=== PATIENT | female | born 1975 | race African-American/Black ===

== ENCOUNTER 2018-11-28 20:45 | Emergency (ER) | payer OTHER ==
--- NOTE | 2018-11-28 21:13 | ER ---
Nurse's Notes [facility] Name: Elen Delgado Age: 43 yrs Sex: Female : 1975 Arrival Date: 11/28/2018 Time: 20:48 Bed 19 Private MD: Diagnosis: Otitis media, unspecified, left ear;Unspecified perforation of tympanic membrane, left ear Presentation: 11/28 20:57 Presenting complaint: Patient states: that she is having left ear pain that radiates to left yazidism and left jaw. Started November 20, 2018. Took Sudafed, Amoxicillin, Ibuprofen all with no relief. Has appt with PCP on Friday. Transition of care: patient was not received from another setting of care. Onset of symptoms was November 20, 2018. Risk Assessment: Do you want to hurt yourself or someone else? Patient reports no desire to harm self or others. Initial Sepsis Screen: Does the patient meet any 2 criteria? HR > 90 bpm. Yes Does the patient have a suspected source of infection? No. Patient's initial sepsis screen is negative. Care prior to arrival: Medication(s) given: Motrin, 400 mg, last at 1700. 20:57 Method Of Arrival: Ambulatory 20:57 Acuity: DOMINGA 4 Triage Assessment: 21:00 General: Appears uncomfortable, Behavior is calm, cooperative, appropriate for age. fc Pain: Complains of pain in left ear Pain currently is 9 out of 10 on a pain scale. Quality of pain is described as aching, throbbing, Pain began 1 week ago Is continuous. EENT: Reports pain in left ear. 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 - Social history:: Smoking status: Patient/guardian denies using tobacco, Patient uses alcohol, only on a social basis. Patient/guardian denies using street drugs. - Ebola Screening: : Patient negative for fever greater than or equal to 101.5 degrees Fahrenheit, and additional compatible Ebola Virus Disease symptoms Patient denies exposure to infectious person Patient denies travel to an Ebola-affected area in the 21 days before illness onset. Screenin:14 Abuse screen: Denies threats or abuse. Denies injuries from another. Nutritional ak1 screening: No deficits noted. Tuberculosis screening: No symptoms or risk factors identified. Fall Risk None identified. Assessment: 21:23 General: Appears in no apparent distress. Behavior is calm, cooperative. Pain: ak1 Complains of pain in left ear. Neuro: No deficits noted. Cardiovascular: No deficits noted. Respiratory: No deficits noted. GI: No signs and/or symptoms were reported involving the gastrointestinal system. : No signs and/or symptoms were reported regarding the genitourinary system. EENT: Reports pain in left ear. Derm: No signs and/or symptoms reported regarding the dermatologic system. Musculoskeletal: No signs and/or symptoms reported regarding the musculoskeletal system. Vital Signs: 21:00 BP 130 / 72; Pulse 97; Resp 20; Temp 99(O); Pulse Ox 98% on R/A; Weight 92.99 kg (R); fc Height 5 ft. 3 in. (160.02 cm) (R); Pain 9/10; 21:00 Body Mass Index 36.31 (92.99 kg, 160.02 cm) ED Course: 20:48 Patient arrived in ED. as 20:59 Triage completed. fc 21:00 Arm band placed on Patient placed in an exam room, on a stretcher. fc 21:05 Hema Olvera NP is PHCP. pm1 21:05 Amor Wagner MD is Attending Physician. pm1 21:13 Vanessa Meredith, SADIA is Primary Nurse. ak1 21:14 Patient has correct armband on for positive identification. Bed in low position. Call ak1 light in reach. Side rails up X 1. Pulse ox on. NIBP on. 21:23 No provider procedures requiring assistance completed. Patient did not have IV access ak1 during this emergency room visit. Administered Medications: 21:22 Drug: [place] 5 mg-325 mg 1 tabs Route: PO; ak1 21:24 Follow up: Response: Medication administered at discharge. ak1 Outcome: 21:13 Discharge ordered by MD. pm1 21:23 Discharged to home ambulatory, with family. ak1 21:23 Condition: good 21:23 Discharge instructions given to patient, Instructed on discharge instructions, follow up and referral plans. no drinking with medication, no driving heavy equipment, medication usage, safe sex practices, Demonstrated understanding of instructions, follow-up care, medications, Prescriptions given X 2. 21:24 Patient left the ED. ak1 Signatures: Angie Rivera RN RN fc Martinez, Amelia as Krenek, Amber, RN RN ak1 Hema Olvera, VIOLA [employer] BONING MACHINE FEEDER pm1
--- NOTE | 2018-11-28 21:14 | EDPHYS ---
Physician Documentation [facility] Name: Elen Delgado Age: 43 yrs Sex: Female : 1975 Arrival Date: 11/28/2018 Time: 20:48 Bed 19 Private MD: ED Physician Amor Wagner HPI: 11/28 21:11 This 43 yrs old Black Female presents to ER via Ambulatory with complaints of Left Ear pm1 Pain. 21:11 The patient presents with pain. The complaints affect the left ear. Onset: The pm1 symptoms/episode began/occurred 1 week(s) ago. Modifying factors: The symptoms are alleviated by nothing, the symptoms are aggravated by nothing. Associated signs and symptoms: Pertinent positives: clear discharge from left ear, Pertinent negatives: cough, fever. Severity of symptoms: in the emergency department the symptoms are worse. The patient has experienced a previous episode. The patient has not recently seen a physician. Patient with left ear pain for 1 week. Started taking left over amoxicillin. 2 on the first day then 1 pill daily for 3 days. Patient reports clear drainage from left ear after onset of left ear pain for a few days. 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 - Social history:: Smoking status: Patient/guardian denies using tobacco, Patient uses alcohol, only on a social basis. Patient/guardian denies using street drugs. - Ebola Screening: : Patient negative for fever greater than or equal to 101.5 degrees Fahrenheit, and additional compatible Ebola Virus Disease symptoms Patient denies exposure to infectious person Patient denies travel to an Ebola-affected area in the 21 days before illness onset. ROS: 21:11 Constitutional: Negative for fever, chills, and weight loss, Eyes: Negative for injury, pm1 pain, redness, and discharge. 21:11 Neck: Negative for injury, pain, and swelling, Cardiovascular: Negative for chest pain, palpitations, and edema, Respiratory: Negative for shortness of breath, cough, wheezing, and pleuritic chest pain, Abdomen/GI: Negative for abdominal pain, nausea, vomiting, diarrhea, and constipation, Back: Negative for injury and pain, : Negative for injury, bleeding, discharge, and swelling, MS/Extremity: Negative for injury and deformity, Skin: Negative for injury, rash, and discoloration, Neuro: Negative for headache, weakness, numbness, tingling, and seizure. 21:11 ENT: Positive for drainage from ear(s), ear pain, Negative for sinus congestion, sinus pain, sore throat. Exam: 21:11 Constitutional: This is a well developed, well nourished patient who is awake, alert, pm1 and in no acute distress. Head/Face: Normocephalic, atraumatic. Eyes: Pupils equal round and reactive to light, extra-ocular motions intact. Lids and lashes normal. Conjunctiva and sclera are non-icteric and not injected. Cornea within normal limits. Periorbital areas with no swelling, redness, or edema. 21:11 Neck: Trachea midline, no thyromegaly or masses palpated, and no cervical lymphadenopathy. Supple, full range of motion without nuchal rigidity, or vertebral point tenderness. No Meningismus. Chest/axilla: Normal chest wall appearance and motion. Nontender with no deformity. No lesions are appreciated. Cardiovascular: Regular rate and rhythm with a normal S1 and S2. No gallops, murmurs, or rubs. Normal PMI, no JVD. No pulse deficits. Respiratory: Lungs have equal breath sounds bilaterally, clear to auscultation and percussion. No rales, rhonchi or wheezes noted. No increased work of breathing, no retractions or nasal flaring. Abdomen/GI: Soft, non-tender, with normal bowel sounds. No distension or tympany. No guarding or rebound. No evidence of tenderness throughout. Back: No spinal tenderness. No costovertebral tenderness. Full range of motion. Skin: Warm, dry with normal turgor. Normal color with no rashes, no lesions, and no evidence of cellulitis. MS/ Extremity: Pulses equal, no cyanosis. Neurovascular intact. Full, normal range of motion. 21:11 ENT: External ear(s): are unremarkable, Ear canal(s): are normal, TM's: rupture, on the left, Examination of the other ear shows no obvious abnormality, Nose: is normal, Posterior pharynx: is normal, airway is patent, no erythema, no peritonsilar mass, no pooling of secretions, no swelling. 21:11 Neuro: Orientation: is normal, Motor: is normal, moves all fours, Sensation: is normal, no obvious gross deficits, Gait: is steady, at a normal pace, without difficulty. Vital Signs: 21:00 BP 130 / 72; Pulse 97; Resp 20; Temp 99(O); Pulse Ox 98% on R/A; Weight 92.99 kg (R); fc Height 5 ft. 3 in. (160.02 cm) (R); Pain 9/10; 21:00 Body Mass Index 36.31 (92.99 kg, 160.02 cm) fc MDM: 21:06 Patient medically screened. pm1 21:11 Data reviewed: vital signs. Data interpreted: Pulse oximetry: on room air is 98 %. pm1 Interpretation: normal. Counseling: I had a detailed discussion with the patient and/or guardian regarding: the historical points, exam findings, and any diagnostic results supporting the discharge/admit diagnosis, the need for outpatient follow up, for definitive care, an ENT specialist, to return to the emergency department if symptoms worsen or persist or if there are any questions or concerns that arise at home. Administered Medications: 21:22 Drug: [place] 5 mg-325 mg 1 tabs Route: PO; ak1 21:24 Follow up: Response: Medication administered at discharge. ak1 Disposition: 11/28/18 21:13 Discharged to Home. Impression: Otitis media, unspecified, left ear, Unspecified perforation of tympanic membrane, left ear. - Condition is Stable. - Discharge Instructions: Otitis Media, Adult, Eardrum Perforation, [id number]. - Prescriptions for Augmentin 875- 125 mg Oral Tablet - take 1 tablet by ORAL route every 12 hours for 10 days; 20 tablet. Tylenol- Codeine #3 300-30 mg Oral Tablet - take 2 tablets by ORAL route every 6 hours As needed; 20 tablet. - Medication Reconciliation Form, Thank You Letter, Antibiotic Education, Prescription Opioid Use form. - Follow up: Emergency Department; When: As needed; Reason: Worsening of condition. Follow up: Private Physician; When: 2 - 3 days; Reason: Recheck today's complaints, Continuance of care, Re-evaluation by your physician. - Problem is new. - Symptoms have improved. Addendum: 11/30/2018 15:30 Co-signature as Attending Physician, Amor Wagner MD. g s Signatures: Angie Rivera RN RN Vanessa Meredith RN RN ak1 Hmea Olvera, FOREST BIOMETRICS PROFESSOR FOREST BIOMETRICS PROFESSOR pm1 Amor Wagner MD MD Corrections: (The following items were deleted from the chart) 11/28 21:24 21:13 11/28/2018 21:13 Discharged to Home. Impression: Otitis media, unspecified, left ak1 ear; Unspecified perforation of tympanic membrane, left ear. Condition is Stable. Forms are Medication Reconciliation Form, Thank You Letter, Antibiotic Education, Prescription Opioid Use. Follow up: Emergency Department; When: As needed; Reason: Worsening of condition. Follow up: Private Physician; When: 2 - 3 days; Reason: Recheck today's complaints, Continuance of care, Re-evaluation by your physician. Problem is new. Symptoms have improved. pm1
[2018-11-28] MEDS ORDERED: HYDROCODONE/APAP 5/325 MG TAB ONE (21:36)
== END 2018-11-28 21:24 | disposition home or self-care (01) ==
LOC: ER 20:45
DX: H66.92 Otitis media, unspecified, left ear (principal); H72.92 Unspecified perforation of tympanic membrane, left ear; J45.909 Unspecified asthma, uncomplicated
CPT/HCPCS: 99283

== ENCOUNTER 2022-04-26 10:22 | Emergency (ER) | payer OTHER ==
--- OUTSIDE RECORDS SUMMARY | 2022-04-26 10:26 | XMS REPORT | Continuity of Care Document ---
:1975 Author Organization [facility] t Address [address] [place] [address] Care Team Providers Name Role Phone Gilberto Whitney Attending Clinician Unavailable Ricky Rinaldi DO Attending Clinician Doctor Unassigned, [place] Attending Clinician Unavailable Sydni Wilhelm MD Attending Clinician Payers Payer Name Policy Type Policy Number Effective Date Expiration Date S ource Problems Condition Condition Condition Status Onset Resolution Last Treating Co mments Source Name Details Category Date Date Treatment Clinician Date Allergic Allergic Disease Active Unive rs rhinitis rhinitis 03-06 ity of 00:00: [place] 00 [facility] Eczema Eczema Disease Active Univers 9-07 ity of 00:00: [address] Dental Dental Disease Active Univers decay decay 03-06 ity of 00:00: [address] Asthma, Asthma, Disease Active Univers moderate moderate 4-08 [place] Medical poorly-con poorly-con Br anch trolled trolled Mild Mild Problem Active Common intermitte intermitte Sp anahi nt asthma nt asthma - CH I without without St complicati complicati [facility] Moderate Moderate Problem Active Commo n persistent persistent Sp anahi asthma asthma - [facility] with with St exacerbati exacerbati [facility] Seasonal Seasonal Problem Active Commo n allergies allergies Spir it - [facility] Uncomplica Uncomplica Problem Active C ommon ilan ilan Spirit asthma, asthma, - CHI unspecifie unspecifie St d asthma d asthma [facility] severity, severity, Medi александр unspecifie unspecifie Ce nter d whether d whether persistent persistent Gastroesop Gastroesop Problem Active C ommon hageal hageal Spirit reflux reflux - CHI disease disease St without without [facility] esophagiti esophagiti Me dical [facility] Body mass Body mass Problem Active Com mon index index Spirit (BMI) of (BMI) of - CHI 31.0-31.9 31.0-31.9 St in adult in adult [facility] Encounter Encounter Diagnosis Active C ommon for for Spirit general general - [facility] adult adult [facility] examinatio examinatio Me dical n without n without Cent er abnormal abnormal findings findings Hyperinsul Hyperinsul Problem Active C ommon inism inism Spirit - [facility] Routine Routine Diagnosis Active Commo n gynecologi gynecologi Sp anahi александр александр - [facility] examinatio examinatio [facility] Allergies, Adverse Reactions, Alerts Allergy Allergy Status Severity Reaction(s) Onset Inactive Treating Comm ents Source Name Type Date Date Clinician NO KNOWN Drug Active Univers ALLERGIE Class ity of S [facility] Social History Social Habit Start Date Stop Date Quantity Comments Source Exposure to Not sure [facility]-CoV-2 [facility] (event) Branch Alcohol intake 2017-03-06 2017-03-06 Current [facility] 00:00:00 00:00:00 non-drinker of [facility] alcohol [place] (finding) Tobacco use and 2017-03-06 2017-03-06 Never used Universit y of exposure 00:00:00 00:00:00 [facility] Sex Ass[birth year] At [birth year] Universit y of 00:00:00 00:00:00 [facility] Smoking Status Start Date Stop Date Source Never smoker [facility] Medications Ordered Filled Start Stop Current Ordering Indication Dosage Frequency Signature Comments Components Source Medication Medication Date Date Medication? Clinician (SIG) Name Name Advair Advair Yes Jae 1 puff Commo n Diskus Diskus 03-11 Nathalie Spirit 00:00: - [facility] Montelukast Montelukast Yes Jae 1 tablet Common Sodium Sodium 6 Nathalie Spirit 00:00: - [facility] Fluticasone Fluticasone Yes Jae 1 spray in Common Propionate Propionate 6 Nathalie each Sp anahi 00:00: nostril - [facility] Omeprazole Omeprazole Yes Jae 1 capsule Common 4-23 Nathalie Spirit 00:00: - [facility]I 00 [facility] DIPHENHYDRA Yes Take by Uni vers MINE HCL 9-07 mouth. ity of (BENADRYL 13:33: [place] ORAL) 11 Medical Branch DIPHENHYDRA Yes Take by Uni vers MINE HCL 9-07 mouth. ity of (BENADRYL 13:33: [place] ORAL) 11 Medical Branch DIPHENHYDRA Yes Take by Uni vers MINE HCL 9-07 mouth. ity of (BENADRYL 13:33: [place] ORAL) 11 Medical Branch cetirizine Yes [id number] 10mg Take 1 U nivers (ZYRTEC) 10 03-06 tablet by ity of mg tablet 00:00: mouth [place] 00 daily. Medical Branch fluocinonid Yes [id number] Apply to Univers e 0.05 % 03-06 area(s) 2 ity of ointment 00:00: (two) [place] 00 times Medical daily. Branch ipratropium Yes [id number] 2{puff} Inhale 2 Univers (ATROVENT 03-06 [id number] Puffs 4 ity o f HFA) 17 00:00: (four) [place] mcg/actuati 00 times Medical on inhaler daily. Branch fluticasone Yes [id number] 1{puff} Inhale 1 Univers -salmeterol 03-06 [id number] Puff 2 ity of (ADVAIR 00:00: (two) [place] DISKUS) 00 times Medical 250-50 daily. Branch mcg/dose inhalation disk albuterol Yes [id number] 2{puff} Inhale 2 Univers 90 03-06 [id number] Puffs ity of mcg/actuati 00:00: every 6 Jacob as on inhaler 00 (six) Medical hours as Branch needed for Wheezing or Shortness of Breath. ipratropium Yes [id number] 1 vial inh Univers -albuterol 03-06 [id number] via ity of 0.5 mg-3 00:00: nebulizer [place] mg(2.5 mg 00 q4-6 hours Medi [facility])/3 mL as needed Bran ch nebulizer solution cetirizine Yes [id number] 10mg Take 1 U nivers (ZYRTEC) 10 03-06 tablet by ity of mg tablet 00:00: mouth [place] 00 daily. Medical Branch fluocinonid Yes [id number] Apply to Univers e 0.05 % 03-06 area(s) 2 ity of ointment 00:00: (two) [place] 00 times Medical daily. Branch ipratropium Yes [id number] 2{puff} Inhale 2 Univers (ATROVENT 03-06 [id number] Puffs 4 ity o f HFA) 17 00:00: (four) [place] mcg/actuati 00 times Medical on inhaler daily. Branch fluticasone Yes [id number] 1{puff} Inhale 1 Univers -salmeterol 03-06 [id number] Puff 2 ity of (ADVAIR 00:00: (two) [place] DISKUS) 00 times Medical 250-50 daily. Branch mcg/dose inhalation disk albuterol Yes [id number] 2{puff} Inhale 2 Univers 90 03-06 [id number] Puffs ity of mcg/actuati 00:00: every 6 [place] as on inhaler 00 (six) Medical hours as Branch needed for Wheezing or Shortness of Breath. ipratropium Yes [id number] 1 vial inh Univers -albuterol 03-06 [id number] via ity of 0.5 mg-3 00:00: [place]bulizer [place] mg(2.5 mg 00 q4-6 hours [facility])/3 mL as needed [facility] nebulizer solution cetirizine Yes [id number] 10mg Take 1 U nivers (ZYRTEC) 10 03-06 tablet by ity of mg tablet 00:00: mouth 00 daily. Medical Branch fluocinonid Yes [id number] Apply to Univers e 0.05 % 03-06 area(s) 2 ity of ointment 00:00: (two) [place] 00 times Medical daily. Branch ipratropium Yes [id number] 2{puff} Inhale 2 Univers (ATROVENT 03-06 [id number] Puffs 4 ity o f HFA) 17 00:00: (four) [place] mcg/actuati 00 times Medical on inhaler daily. Branch fluticasone Yes [id number] 1{puff} Inhale 1 Univers -salmeterol 03-06 [id number] Puff 2 ity of (ADVAIR 00:00: (two) [place] DISKUS) 00 times Medical 250-50 daily. Branch mcg/dose inhalation disk albuterol Yes [id number] 2{puff} Inhale 2 Univers 90 03-06 [id number] Puffs ity of mcg/actuati 00:00: every 6 [place] as on inhaler 00 (six) Medical hours as Branch needed for Wheezing or Shortness of Breath. ipratropium Yes [id number] 1 vial inh Univers -albuterol 03-06 [id number] via ity of 0.5 mg-3 00:00: [place]bulizer [place] mg(2.5 mg 00 q4-6 hours Medi александр base)/3 mL as needed Bran ch nebulizer solution Fluocinonid Fluocinonid Yes Jae 1 Common e e Nathalie applicatio Spirit n to - CHI affected [facility] ProAir HFA ProAir HFA Yes Jae 2 puffs as Common Nathalie needed [facility] Albuterol Albuterol Yes Jae neb tx. Common Nathalie [facility] Vital Signs Vital Name Observation Time Observation Value Comments Source Systolic blood 2021-02-02 17:00:00 144 [facility]Hg[facility] Diastolic blood 2021-02-02 17:00:00 91 mm[Hg[facility] Heart rate 2021-02-02 17:00:00 82 /min [facility] Body temperature 2021-02-02 17:00:00 37.33 Janis [facility] Res[facility] rate 2021-02-02 17:00:00 20 /min [facility] Body height 2021-02-02 17:00:00 157.5 cm [facility] Body weight 2021-02-02 17:00:00 84.823 kg [facility] BMI 2021-02-02 17:00:00 34.20 kg/m2 Universi ty of [facility] Oxygen saturation in 2021-02-02 17:00:00 100 /min University of Arterial blood by [facility] Pulse oximetry Branch Procedures Procedure Date / Time Performed Performing Clinician Juan Diego ARIAS-19 (ID NOW 2021-02-02 17:55:00 Ricky Rinaldi [facility] RAPID TESTING) Medical Branch NOTICE OF PRIVACY 2021-02-02 16:53:15 Doctor Unassigned, No Univ [facility] PRACTICES Name Medical Branch CONSENT/REFUSAL FOR 2021-02-02 16:53:03 Doctor Unassigned, [facility] AND Name Medical Branch TREATMENT Encounters Start End Encounter Admission Attending Care Care Encounter Source Date/Time Date/Time Type Type Clinicians Facility Department ID 2022-04-25 [facility] [place] [id number] Common 08:46:00 Whitney [address] [facility] 2021-04-30 Emergency [facility] [id number] Univers 13:40:33 ity of [facility] 2021-02-02 2021-02-02 Emergency [facility] [id number] Univers 12:10:00 14:36:00 Ricky Anne [id number] i ty [facility] [id number] [facility] [id number] [facility] 084 Branch 2021-02-02 2021-02-02 Orders Doctor DORADO [id number] Univers 00:00:00 00:00:00 Only UnassignedANGELIQUE [id number] [place] [facility] [id number] [facility] [id number] [facility] 009 Branch 2019-04-16 2019-04-16 [facility] [id number] Common 10:45:00 10:45:00 t [facility] Spir it Road [facility] 2019-03-19 2019-03-19 [facility] [id number] Common 08:45:00 08:45:00 t [facility] it Road [facility] 2019-03-11 2019-03-11 [facility] [id number] Common 08:15:00 08:15:00 [facility] Spir it [facility] 2019-03-07 2019-03-07 Joseph Wilhelm [facility] [id number] Univers 00:00:00 00:00:00 Sydni [facility] [id number] ity estelle Anne [id number] Jacob as Professio [id number] [place] [address] Branch [address] 2018-10-20 2018-10-20 Outpatient [place] [id number] Common 08:40:00 08:40:00 t [facility] Spir it [facility] 2018-06-25 2018-06-25 Outpatient John Lopezt [id number] Common 13:30:00 13:30:00 [facility] Results Test Description Test Time Test Comments Results Result Comments Source COVID-19 (ID NOW RAPID TESTING) 2021-02-02 18:21:55 Test Item Value Reference Range Interpretation Comme nts SARS-CoV-2 Rapid ID NOW (test code Not Detected Not Detected = 64484-0) JAMA (test code = JAMA) ID NOW COVID-19 Assay is an isothermal nucleic acid amplification test intended for the qualitative detection of nucleic acid from SARS-CoV-2 viral RNA in nasopharyngeal (CIRCLE SAW OPERATOR) specimens. It is used under Emergency Use Authorization (EUA) by FDA. The limit of detection (LOD) of the assay is 125 Genome Equivalents/mL. A positive result is indicative of the presence of SARS-CoV-2 RNA. ?Clinical correlation with patient history and other diagnostic information is necessary to determine patient infection status. A negative (Not Detected) result does not preclude SARS-CoV-2 infection. In patients with clinical symptoms and other tests that are consistent with SARS-CoV-2 infection, negative results should be treated as presumptive negative and a new specimen should be tested with alternative PCR molecular test. Invalid: Please collect a new specimen for repeat patient testing if clinically indicated. Lab Interpretation (test code = Normal 19638-1) [facility]
[2022-04-26 11:27] LABS: Absolute Lymphocytes (CBC) 1.9 K/uL (0.7-4.9); Hematocrit 38.2 % (36.0-45.0); MCV 84.9 fL (80-100); MPV 6.7 fL (7.6-11.3)
[2022-04-26 11:31] LABS: Urine Blood Trace-intact (Negative); Urine Glucose Negative (Negative); Urine Protein Negative (Negative); Urine Specific Gravity >=1.030 (1.005-1.030)
[2022-04-26 11:41] LABS: Urine Mucus Slight /HPF (None Seen); Urine RBC <5 /HPF (None Seen)
[2022-04-26 11:44] LABS: Magnesium 2.1 mg/dL (1.8-2.4); Potassium 3.9 mmol/L (3.5-5.1); Troponin High Sensitivity 3.6 pg/mL (<58.9)
--- NOTE | 2022-04-26 12:13 | RAD REPORT ---
EXAM DESCRIPTION: Nuno Single View04/26/2022 11:04 am CLINICAL HISTORY: Chest pain COMPARISON: 2020 FINDINGS: The lungs appear clear of acute infiltrate. The heart is normal size IMPRESSION: No acute abnormalities displayed
--- NOTE | 2022-04-26 12:27 | RAD REPORT ---
EXAM DESCRIPTION: CT - Chest For Pe Angio - 04/26/2022 12:08 pm CLINICAL HISTORY: Chest pain COMPARISON: None. TECHNIQUE: Dynamically enhanced axial 3 mm thick images of the chest were obtained during administra tion of <100> mL Isovue 370 IV contrast. Coronal and oblique reconstruction images were generated and reviewed. Exam utilizes a protocol for optimal evaluation of pulmonary arterial tree. Maximum intensity projections 3D imaging was utilized All CT scans are performed using dose optimization technique as appropriate and may include automated exposure control or mA/KV adjustment according to patient size. FINDINGS: The opacification of the pulmonary arteries is somewhat suboptimal. A pulmonary embolus is not seen. A thoracic aortic aneurysm is not noted. A pleural effusion is not seen. A pericardial effusion is not seen. A lung consolidation is not present. A small left diaphragmatic hernia contains fat. Aberrant right subclavian artery IMPRESSION: No gross evidence of a pulmonary embolus
[2022-04-26] MEDS ORDERED: METHYLPREDNISOLONE 125 MG INJ ONE (12:33)
[2022-04-26] MEDS ORDERED: KETOROLAC 30 MG/ML INJ ONE (12:34)
[2022-04-26] MEDS ORDERED: ALBUTEROL 2.5 MG/3 ML NEB SOL ONE (12:34)
--- NOTE | 2022-04-26 13:37 | RAD REPORT ---
EXAM DESCRIPTION: US - Extrem Venous W Compress Wolfgang - 04/26/2022 1:31 pm CLINICAL HISTORY: elevated d-dimer COMPARISON: No comparisons TECHNIQUE: Real-time sonographic evaluation of the lower extremity deep venous systems was performed using color Doppler, grayscale, and compression. FINDINGS: Bilateral lower extremities. Normal compressibility, flow augmentation, phasic flow and spontaneous flow is identified in both the left and right lower extremity deep venous systems. No intraluminal filling defects seen. IMPRESSION: No DVT in either lower extremity.
--- NOTE | 2022-04-26 13:53 | EDPHYS ---
Physician Documentation [facility] Name: Elen Delgado Age: 46 yrs Sex: Female : 1975 Arrival Date: 04/26/2022 Time: 10:23 Bed 7 Private MD: ED Physician Sav Lilly HPI: 04/26 11:00 This 46 yrs old Black Female presents to ER via Ambulatory with complaints of Breathing cp Difficulty. 11:00 The patient has shortness of breath at rest. Onset: The symptoms/episode began/occurred cp 4 day(s) ago. Duration: The symptoms are continuous, and are steadily getting worse. The patient's shortness of breath is aggravated by light activity. Associated signs and symptoms: Pertinent positives: chest pain, non-productive cough, Pertinent negatives: diaphoresis, dizziness, fever, vomiting. Severity of symptoms: in the emergency department the symptoms are unchanged despite home interventions. 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 - Social history:: Smoking status: Patient denies any tobacco usage or history of. ROS: 11:05 Constitutional: Negative for body aches, chills, fever, poor PO intake. cp 11:05 Eyes: Negative for injury, pain, redness, and discharge. cp 11:05 ENT: Negative for drainage from ear(s), ear pain, sore throat, difficulty swallowing, difficulty handling secretions. 11:05 Cardiovascular: Positive for chest pain, Negative for edema, palpitations. 11:05 Respiratory: Positive for cough, with no reported sputum, shortness of breath, at rest. 11:05 Abdomen/GI: Negative for abdominal pain, nausea, vomiting, and diarrhea. 11:05 Neuro: Negative for altered mental status, dizziness, headache, numbness, syncope, weakness. 11:05 All other systems are negative. Exam: 11:10 Constitutional: The patient appears in no acute distress, alert, awake, cp non-diaphoretic, non-toxic, well developed, well nourished. 11:10 Head/Face: Normocephalic, atraumatic. cp 11:10 Eyes: Periorbital structures: appear normal, Conjunctiva: normal, no exudate, no injection, Sclera: no appreciated abnormality, Lids and lashes: appear normal, bilaterally. 11:10 ENT: External ear(s): are unremarkable, Ear canal(s): are normal, clear, TM's: dullness, bilaterally, Nose: is normal, Mouth: Lips: moist, Oral mucosa: pink and intact, moist, Posterior pharynx: Airway: no evidence of obstruction, patent, Tonsils: no enlargement, no erythema, no exudate, swelling, is not appreciated, erythema, is not appreciated, exudate, is not appreciated. 11:10 Neck: ROM/movement: is normal, is supple, without pain, no range of motions limitations, no meningismus. 11:10 Chest/axilla: Inspection: normal. 11:10 Cardiovascular: Rate: normal, Rhythm: regular, Edema: is not appreciated, JVD: is not appreciated. 11:10 Respiratory: the patient does not display signs of respiratory distress, Respirations: normal, no use of accessory muscles, no retractions, labored breathing, that is mild, Breath sounds: decreased breath sounds, that are mild, diffuse, stridor, is not appreciated, wheezing: is not appreciated. 11:10 Abdomen/GI: Inspection: abdomen appears normal, Palpation: abdomen is soft and non-tender, in all quadrants. 11:10 Back: pain, is absent, ROM is normal. 11:10 Neuro: Orientation: to person, place \\T\\ time. Mentation: is normal, Motor: moves all fours, strength is normal. 12:00 ECG was reviewed by the Attending Physician. cp Vital Signs: 10:42 BP 128 / 87; Pulse 98; Resp 19; Temp 97.4; Pulse Ox 100% on R/A; Weight 90.72 kg; jl7 Height 5 ft. 2 in. (157.48 cm); Pain 5/10; 11:45 BP 112 / 82; Pulse 86; Resp 18; Pulse Ox 100% on R/A; vg1 13:06 BP 116 / 86; Pulse 82; Pulse Ox 98% on R/A; ap3 14:12 BP 116 / 74; Pulse 75; Resp 15; Pulse Ox 99% ; vg1 10:42 Body Mass Index 36.58 (90.72 kg, 157.48 cm) jl7 MDM: 10:47 Patient medically screened. cp 13:50 Data reviewed: vital signs, nurses notes, lab test result(s), EKG, radiologic studies, cp CT scan, plain films, ultrasound. 13:50 Differential diagnosis: Bronchitis Chronic Obstructive Pulmonary Disease pneumonia, cp Pneumothorax pulmonary edema, Pulmonary Embolism. Test interpretation: by ED physician or midlevel provider: ECG, plain radiologic studies. Counseling: I had a detailed discussion with the patient and/or guardian regarding: the historical points, exam findings, and any diagnostic results supporting the discharge/admit diagnosis, lab results, radiology results, the need for outpatient follow up, a family practitioner, to return to the emergency department if symptoms worsen or persist or if there are any questions or concerns that arise at home. 04/26 10:45 Order name: Basic Metabolic Panel; Complete Time: 11:54 cp 04/26 11:54 Interpretation: Normal except: CL 108. cp 04/26 10:45 Order name: CBC with Diff; Complete Time: 11:44 cp 04/26 11:44 Interpretation: Normal except: RDW 15.3; MPV 6.7. cp 04/26 10:45 Order name: D-Dimer; Complete Time: 11:54 cp 04/26 10:45 Order name: Magnesium; Complete Time: 11:54 cp 04/26 10:45 Order name: NT PRO-BNP; Complete Time: 11:54 cp 04/26 10:45 Order name: Troponin HS; Complete Time: 11:54 cp 04/26 10:45 Order name: XRAY Chest (1 view); Complete Time: 12:58 cp 04/26 10:45 Order name: Influenza Screen (a \\T\\ B); Complete Time: 11:44 cp 04/26 10:45 Order name: COVID-19 SARS RT PCR (Document "Date of Onset" if Symptomatic); Complete cp Time: 12:58 04/26 10:45 Order name: Urine Microscopic Only; Complete Time: 11:44 cp 04/26 11:31 Order name: Urine Dipstick-Ancillary; Complete Time: 11:44 EDMS 04/26 11:52 Order name: Urine --Ancillary (enter results); Complete Time: 12:58 eb 04/26 11:56 Order name: CT Chest For PE Angio; Complete Time: 12:58 cp 04/26 12:58 Order name: US Extremity Venous W Compression Wolfgang; Complete Time: 13:40 cp 04/26 10:45 Order name: EKG; Complete Time: 10:46 cp 04/26 10:45 Order name: Cardiac monitoring; Complete Time: 11:15 cp 04/26 10:45 Order name: EKG - Nurse/Tech; Complete Time: 11:57 cp 04/26 10:45 Order name: IV Saline Lock; Complete Time: 11:15 cp 04/26 10:45 Order name: Labs collected and sent; Complete Time: 11:15 cp 04/26 10:45 Order name: O2 Per Protocol; Complete Time: 11:15 cp 04/26 10:45 Order name: O2 Sat Monitoring; Complete Time: 11:15 cp 04/26 10:45 Order name: Urine Dipstick-Ancillary (obtain specimen); Complete Time: 11:32 cp 04/26 10:45 Order name: Urine Test (obtain specimen); Complete Time: 11:32 cp EC:00 Rate is 77 beats/min. Rhythm is regular. WI interval is normal. QRS interval is normal. cp QT interval is normal. T waves are Inverted in lead aVR. Interpreted by me. Reviewed by me. Administered Medications: 12:37 Drug: Ketorolac 15 mg Route: IVP; Site: left antecubital; vg1 12:38 Drug: SOLU-Medrol (methylPrednisoLONE) 125 mg Route: IVP; Site: left antecubital; vg1 12:43 Drug: Albuterol 2.5 mg Route: Inhalation; vg1 Disposition: 19:18 Co-signature as Attending Physician, Sav MARTINEZ was immediately available on-site ms3 in the Emergency Department for consultation in the care of the patient. Disposition Summary: 04/26/22 13:52 Discharge Ordered Location: Home cp Problem: new cp Symptoms: have improved cp Condition: Stable cp Diagnosis - Unspecified asthma with (acute) exacerbation cp Followup: cp - With: Private Physician - When: 2 - 3 days - Reason: Recheck today's complaints Discharge Instructions: - Discharge Summary Sheet cp - Asthma, Adult cp Forms: - Medication Reconciliation Form cp - Thank You Letter cp - Antibiotic Education cp - Prescription Opioid Use cp Prescriptions: - Bromfed DM 2-30-10 mg/5 mL Oral syrup - take 10 milliliter by ORAL route every 6 hours; 180 milliliter; Refills: 0, cp Product Selection Permitted - Albuterol Sulfate 2.5 mg /3 mL (0.083 %) Inhalation Solution for Nebulization - inhale 1 unit by NEBULIZATION route every 8 hours As needed; 1 box; Refills: 0, cp Product Selection Permitted - Prednisone 20 mg Oral Tablet - take 2 tablets by ORAL route once daily for 5 days; 10 tablet; Refills: 0, cp Product Selection Permitted Signatures: Dispatcher [employer] EDAustin Singleton PA PA cp Leal, Jahala RN RN jl7 Zoya Vaughan RN RN vg1 Sav Lilly DO DO ms3
--- NOTE | 2022-04-26 13:53 | ER ---
Nurse's Notes [facility] Name: Elen Delgado Age: 46 yrs Sex: Female : 1975 Arrival Date: 04/26/2022 Time: 10:23 Bed 7 Private MD: Diagnosis: Unspecified asthma with (acute) exacerbation Presentation: 04/26 10:42 Chief complaint: Patient states: SOB on exertion. Coronavirus screen: Vaccine status: jl7 Patient reports receiving the 2nd dose of the covid vaccine. shortness of breath, Client presents with at least one sign or symptom that may indicate coronavirus-19. Standard/surgical mask placed on the client. Ebola Screen: No symptoms or risks identified at this time. Initial Sepsis Screen: Does the patient meet any 2 criteria? No. Patient's initial sepsis screen is negative. Does the patient have a suspected source of infection? No. Patient's initial sepsis screen is negative. Risk Assessment: Do you want to hurt yourself or someone else? Patient reports no desire to harm self or others. Onset of symptoms was April 22, 2022. 10:42 Method Of Arrival: Ambulatory [facility] 10:42 Acuity: DOMINGA 3 jl7 Triage Assessment: 10:43 General: Appears in no apparent distress. uncomfortable, Behavior is calm, cooperative, jl7 appropriate for age. Pain: Complains of pain in anterior aspect of right upper chest Pain currently is 5 out of 10 on a pain scale. Quality of pain is described as soreness. Respiratory: Reports shortness of breath on exertion Airway is patent Respiratory effort is even, unlabored, Respiratory pattern is regular, symmetrical, Onset: The symptoms/episode began/occurred gradually, the patient has mild shortness of breath. [employer] [employer]: 10:43 LMP 04/05/2022 jl7 Historical: - Allergies: 10:43 No Known Allergies; jl7 - Home Meds: 10:43 Advair Diskus 250-50 mcg/dose Inhl dsdv 1 puff 2 times per day [Active]; Zyrtec 10 mg jl7 Oral chew 1 tab once daily [Active]; - PMHx: 10:43 Asthma; jl7 - PSHx: 10:43 Ligation of fallopian tube; jl7 - Immunization history:: Client reports receiving the Flavio \T\ Flavio single-dose vaccine. - Social history:: Smoking status: Patient denies any tobacco usage or history of. Screenin:00 Abuse screen: Denies threats or abuse. Nutritional screening: No deficits noted. vg1 Tuberculosis screening: No symptoms or risk factors identified. Fall Risk No fall in past 12 months (0 pts). No secondary diagnosis (0 pts). IV access (20 points). Ambulatory Aid- None/Bed Rest/Nurse Assist (0 pts). Gait- Normal/Bed Rest/Wheelchair (0 pts) Mental Status- Oriented to own ability (0 pts). Total Tucker Fall Scale indicates No Risk (0-24 pts). Assessment: 11:46 General: notified provider of lab alert for D-Dimer of 1011. ap3 11:57 Reassessment: Patient appears in no apparent distress at this time. Patient and/or vg1 family updated on plan of care and expected duration. Pain level reassessed. Patient is alert, oriented x 3, equal unlabored respirations, skin warm/dry/pink. pt stated SOB, denies JEANA leg pain. 13:00 Reassessment: Patient appears in no apparent distress at this time. Patient and/or vg1 family updated on plan of care and expected duration. Pain level reassessed. Patient is alert, oriented x 3, equal unlabored respirations, skin warm/dry/pink. 14:12 Reassessment: Patient appears in no apparent distress at this time. No changes from vg1 previously documented assessment. Patient and/or family updated on plan of care and expected duration. Pain level reassessed. Patient is alert, oriented x 3, equal unlabored respirations, skin warm/dry/pink. Patient states feeling better. Vital Signs: 10:42 BP 128 / 87; Pulse 98; Resp 19; Temp 97.4; Pulse Ox 100% on R/A; Weight 90.72 kg; jl7 Height 5 ft. 2 in. (157.48 cm); Pain 5/10; 11:45 BP 112 / 82; Pulse 86; Resp 18; Pulse Ox 100% on R/A; vg1 13:06 BP 116 / 86; Pulse 82; Pulse Ox 98% on R/A; ap3 14:12 BP 116 / 74; Pulse 75; Resp 15; Pulse Ox 99% ; vg1 10:42 Body Mass Index 36.58 (90.72 kg, 157.48 cm) jl7 ED Course: 10:23 Patient arrived in ED. am2 10:25 Austin Dunaway PA is PHCP. cp 10:25 Sav Lilly DO is Attending Physician. cp 10:43 Triage completed. jl7 10:43 Arm band placed on right wrist. jl7 10:47 France Molina, RN is Primary Nurse. ap3 11:06 XRAY Chest (1 view) In Process Unspecified. EDMS 11:15 Inserted saline lock: 22 gauge in left antecubital area, using aseptic technique. Blood ap3 collected. 12:00 Patient has correct armband on for positive identification. Placed in gown. Bed in low vg1 position. Call light in reach. Side rails up X 1. Client placed on continuous cardiac and pulse oximetry monitoring. NIBP monitoring applied. 12:00 No provider procedures requiring assistance completed. vg1 12:10 CT Chest For PE Angio In Process Unspecified. EDMS 13:33 US Extremity Venous W Compression Jeana In Process Unspecified. EDMS 14:13 IV discontinued, intact, bleeding controlled, No redness/swelling at site. Pressure vg1 dressing applied. Administered Medications: 12:37 Drug: Ketorolac 15 mg Route: IVP; Site: left antecubital; vg1 12:38 Drug: SOLU-Medrol (methylPrednisoLONE) 125 mg Route: IVP; Site: left antecubital; vg1 12:43 Drug: Albuterol 2.5 mg Route: Inhalation; vg1 Medication: 14:13 VIS not applicable for this client. vg1 Outcome: 13:52 Discharge ordered by MD. cp 14:14 Discharged to home ambulatory. vg1 14:14 Condition: good 14:14 Discharge instructions given to patient, Instructed on discharge instructions, follow up and referral plans. medication usage, Demonstrated understanding of instructions, follow-up care, medications, Prescriptions given X 3. 14:14 Patient left the ED. vg1 Signatures: Dispatcher [employer] EDMS Austin Dunaway PA PA cp Leal, Jahala RN RN jl7 France Perkins am2 France Molina, SADIA RN ap3 Zoya Vaughan, RN RN vg1
[2022-04-26 14:33] VITALS: BP 116/74; O2SAT 99
--- NOTE | 2022-04-29 16:08 | EKG ---
Test Date: 2022-04-26 Test Time: 11:54:03 Muck Farmer: MEASUREMENT RESULTS: Intervals: Rate: 77 VA: 148 QRSD: 78 QT: 368 QTc: 416 [place]: P: 70 VA: 148 QRS: 0 T: 38 INTERPRETIVE STATEMENTS: Normal sinus rhythm with sinus arrhythmia Normal ECG No previous ECG available for comparison Electronically Signed On 04-29-22 16:01:04 CDT by Juan José Haskins
== END 2022-04-26 14:14 | disposition home or self-care (01) ==
LOC: ER 10:22
DX: J45.901 Unspecified asthma with (acute) exacerbation (principal); Z20.822 Contact with and (suspected) exposure to COVID-19
CPT/HCPCS: 93005; 85025; 80048; 36415; 83735; 81025; 85379; 84484; 83880; 87804 ×2; 71275; 71045; 93970; 96375; 96374; 99284; U0003; Q9967; J2930; 81003; 81015